=== PATIENT | male | born 1950 | race Caucasian/White ===

== ENCOUNTER 2018-03-17 11:14 | Outpatient (CLI) | payer OTHER ==
[2018-03-17] MEDS ORDERED: IOPAMIDOL-300 100 ML VIAL IVP ONE (13:07)
--- NOTE | 2018-03-17 14:31 | CT Report ---
CT BRAIN WITH AND WITHOUT CONTRAST: 03/17/2018 CLINICAL INDICATION: Esophageal cancer staging. TECHNIQUE: Axial CT images of the brain were obtained prior to and following 100 mL Isovue 300 intravenously. COMPARISON: No previous CT is available for comparison. FINDINGS: The ventricles and sulci are normal in size, shape and configuration. The basilar cisterns are patent. There is no evidence of hemorrhage, mass effect, or midline shift. The visualized orbital contents and paranasal sinuses are unremarkable. No abnormal enhancement is seen following contrast administration. IMPRESSION: NORMAL CT OF THE BRAIN WITH AND WITHOUT CONTRAST. NO EVIDENCE OF METASTATIC DISEASE. CT DOSE REDUCTION STATEMENT In accordance with CT protocol optimization, one or more of the following dose reduction techniques were utilized for this exam: automated exposure control, adjustment of mA and/or KV based on patient size, or use of iterative reconstructive technique. TD: 03/17/2018 14:30
--- NOTE | 2018-03-17 14:33 | CT Report ---
CT CHEST WITH CONTRAST: 03/17/2018 CLINICAL INDICATION: Esophageal cancer staging. TECHNIQUE: Axial CT images of the chest were obtained with 100 mL Isovue 300 intravenously. FINDINGS: The heart and great vessels demonstrate atherosclerotic calcification. No hilar or mediastinal lymphadenopathy is present. There is thickening of the distal esophagus, likely representing the primary lesion. There is a calcified granuloma in the right lower lobe. No suspicious noncalcified pulmonary nodule or mass lesion is present. No effusion or pneumothorax is seen. Osseous structures demonstrate degenerative changes. IMPRESSION: THICKENING OF THE DISTAL ESOPHAGUS, LIKELY REPRESENTING THE PRIMARY LESION. CALCIFIED GRANULOMA IN THE RIGHT LOWER LOBE. NO DEFINITE EVIDENCE OF METASTATIC DISEASE. CT DOSE REDUCTION STATEMENT In accordance with CT protocol optimization, one or more of the following dose reduction techniques were utilized for this exam: automated exposure control, adjustment of mA and/or KV based on patient size, or use of iterative reconstructive technique. TD: 03/17/2018 14:32
--- NOTE | 2018-03-17 14:35 | CT Report ---
CT ABDOMEN WITH CONTRAST: 03/17/2018 CLINICAL INDICATION: Esophageal cancer staging. TECHNIQUE: Axial CT images of the abdomen were obtained with 100 mL Isovue 300 intravenously as well as oral contrast. FINDINGS: The liver demonstrates diffuse decrease in attenuation, compatible with fatty infiltration. No focal mass is seen. The spleen, pancreas, kidneys and adrenal glands appear unremarkable. No bowel dilatation, free gas, or free fluid is present. The gallbladder is not dilated. No abdominal adenopathy is seen. Osseous structures demonstrate degenerative changes. IMPRESSION: FATTY INFILTRATION OF THE LIVER. NO EVIDENCE OF METASTATIC DISEASE. CT DOSE REDUCTION STATEMENT In accordance with CT protocol optimization, one or more of the following dose reduction techniques were utilized for this exam: automated exposure control, adjustment of mA and/or KV based on patient size, or use of iterative reconstructive technique. TD: 03/17/2018 14:33
== END 2018-03-17 11:15 | disposition home or self-care (01) ==
LOC: DI 11:14
PROVIDERS: ATTEND Emergency Medicine Emergency Medical Services
DX: C15.9 Malignant neoplasm of esophagus, unspecified (principal); K76.0 Fatty (change of) liver, not elsewhere classified
CPT/HCPCS: 70470; 71260; 74160; Q9967

== ENCOUNTER 2018-06-05 12:18 | Outpatient (CLI) | payer OTHER, MEDICARE | END 2018-06-05 12:19 | disposition critical access hospital (66) | LOC: EMS 12:18 | PROVIDERS: ATTEND Surgery | DX: R10.9 Unspecified abdominal pain (principal); R11.0 Nausea; R42 Dizziness and giddiness | CPT/HCPCS: A0425; A0427 ==

== ENCOUNTER 2018-06-05 12:34 | Emergency (ER) | payer OTHER, MEDICARE ==
[2018-06-05] MEDS ORDERED: SODIUM CHLORIDE 0.9% 1,000 ML IV ONE (12:41)
[2018-06-05] MEDS ORDERED: MORPHINE 10 MG/ML VIAL IVP STA ×2 (12:41→14:22)
--- NOTE | 2018-06-05 12:46 | ED Physician Documentation ---
PD HPI ABD PAIN - Stated complaint Stated Complaint: ABD PX - Chief complaint Chief Complaint: Abd Pain - History obtained from History obtained from: Patient - History of Present Illness Timing - onset: Today (68-year-old gentleman with esophageal cancer that was primary last year and recurred in the primary site which I guess is in the distal esophagus and he had an endoscopically placed esophageal stent yesterday. He was not very hungry last night or this morning but really was not having much pain. He had a small amount of emesis last night that was pink tinged, but he thinks that was from his Prilosec tablet which is pink. Today around noon He developed sudden onset bandlike upper abdominal pain wrapping to either side that is severe, 7 out of 10. He took a hydrocodone just prior to arrival and had Zofran en route from the paramedics.) Review of Systems Ten Systems: 10 systems reviewed and negative Constitutional: reports: Fatigue. denies: Fever, Chills Respiratory: denies: Dyspnea, Cough GI: reports: Abdominal Pain, Nausea, Vomiting. denies: Diarrhea, Hematemesis : denies: Dysuria, Unable to Void PD PAST MEDICAL HISTORY - Past Medical History Past Medical History: Yes Respiratory: COPD Endocrine/Autoimmune: Type 2 diabetes - Present Medications Home Medications: Ambulatory Orders Medication Instructions Recorded Confirmed Capecitabine 650 mg PO TID 06/05/18 06/05/18 Dexamethasone 4 mg PO DAILY 06/05/18 06/05/18 Hydrocodone/Acetaminophen 15 ml PO DAILY 06/05/18 06/05/18 [Hydrocodon-Acetamin 7.5-325/15] Lansoprazole [Prevacid] 30 mg PO DAILY 06/05/18 06/05/18 Loperamide HCl [Anti-Diarrheal] 2 mg PO DAILY 06/05/18 06/05/18 Ondansetron HCl [Zofran] 8 mg PO DAILY 06/05/18 06/05/18 - Allergies Allergies/Adverse Reactions: Allergies Allergy/AdvReac Type Severity Reaction Status Date / Time No Known Drug Allergies Allergy Verified 06/05/18 12:40 - Living Situation Living Situation: reports: With spouse/s.o. - Social History Does the pt have substance abuse?: No - Family History Family history: reports: Non contributory PD ED PE NORMAL - Vitals Vital signs reviewed: Yes - General General: Alert and oriented X 3, Other (Looks uncomfortable but not overtly distressed.) - HEENT HEENT: PERRL, EOMI - Neck Neck: Supple, no meningeal sign, No bony TTP - Cardiac Cardiac: RRR, No murmur - Respiratory Respiratory: Other (Bibasilar crackles) - Abdomen Abdomen: Other (Tender in the upper abdomen with normal bowel tones, soft with mild rebound tenderness, nonrigid in contrast to the EMS notes) - Back Back: No CVA TTP, No spinal TTP - Derm Derm: Normal color, Warm and dry - Extremities Extremities: No edema, No calf tenderness / cord - Neuro Neuro: Alert and oriented X 3, Normal speech Results - Vitals Vitals: Vital Signs - 24 hr 06/05/18 06/05/18 12:37 14:28 Temperature 36.7 C Heart Rate 98 95 Respiratory 20 20 Rate Blood Pressure 154/81 H 140/79 H O2 Saturation 97 97 Oxygen O2 Source Room air - EKG (time done) 1255 Rate: Rate (enter#) (94) Rhythm: NSR [place]: Normal Intervals: RBBB Ischemia: Non specific changes. No: ST elevation c/w ischemia Computer interpretation: Agree with computer - Labs Labs: Laboratory Tests 06/05/18 06/05/18 06/05/18 12:59 12:59 12:59 WBC 12.4 H RBC 4.23 L Hgb 13.2 L Hct 38.4 L MCV 90.8 MCH 31.1 H MCHC 34.3 RDW 13.7 Plt Count 167 MPV 5.8 L Neut # (Auto) 10.4 H Lymph # (Auto) 0.7 L [place] # (Auto) 1.2 H Eos # (Auto) 0.1 Baso # (Auto) 0.0 Absolute Nucleated RBC 0.00 Nucleated RBC % 0.0 PT 11.9 INR 1.1 Sodium 133 L Potassium 3.6 Chloride 97 L Carbon Dioxide 30 Anion Gap 6.0 BUN 22 H Creatinine 0.7 Estimated GFR (MDRD) 112 Glucose 184 H Lactic Acid Calcium 8.2 L Total Bilirubin 0.6 AST 29 ALT 40 Alkaline Phosphatase 56 Troponin I Total Protein 6.8 Albumin 3.7 Globulin 3.1 Albumin/Globulin Ratio 1.2 Lipase 16 L Blood Type Antibody Screen 06/05/18 06/05/18 06/05/18 12:59 12:59 12:59 WBC RBC Hgb Hct MCV MCH MCHC RDW Plt Count MPV Neut # (Auto) Lymph # (Auto) [place] # (Auto) Eos # (Auto) Baso # (Auto) Absolute Nucleated RBC Nucleated RBC % PT INR Sodium Potassium Chloride Carbon Dioxide Anion Gap BUN Creatinine Estimated GFR (MDRD) Glucose Lactic Acid 1.4 Calcium Total Bilirubin AST ALT Alkaline Phosphatase Troponin I < 0.04 Total Protein Albumin Globulin Albumin/Globulin Ratio Lipase Blood Type O NEGATIVE Antibody Screen NEGATIVE - Rads (name of study) Ct Chest/abd/pelvis with IV contrast Radiology: EMP read contemporaneously (Esophageal stent from the distal esophagus into the proximal stomach with a tiny right pleural effusion and a right lower lobe calcified granuloma change prior from prior exam.) PD MEDICAL DECISION MAKING - ED course Complexity details: reviewed old records (He has the operative report from yesterday with him, the surgeon was Grabiel Guerin MD. He had a circumferential ulcerated firm fungating mass in the distal esophagus, they were unable to pass one T through stricture. He was dilated with a 12 mm CRE, then placed a 450 cm stiff Jag through 12-15 mm biliary stone balloon. Wire placed into the stomach and confirmed with contrast with the balloon inflated. Placed clip BSC I at top of malignant stricture. Under fluoroscopy, 4.5 seconds, introduced BSC I 23 mm 105 mm CP wall flex over wire. Under direct visualization and with fluoroscopy the stent was deployed and copious gastric secretions reflux through the stent and suctioned free with no blood loss and no immediate complications.) ED course: 68-year-old gentleman with sudden upper abdominal pain a day after getting an esophageal stent. After the CTs, the case was initially discussed with my on- call surgeon, Dr. Hussain Ugalde who felt that this should be discussed with his GI and after that I spoke with his GI, Dr. Guerin at the [facility] who after we reviewed the CTs felt that potentially should have the stent pulled back and repositioned and requested that [facility], he will be on- call this weekend and already knows about the patient. He was accepted to the [facility] ER by Dr. Pineda at 3:40 PM, cobras were completed. Patient consented to transfer. - Sepsis Event Vital Signs: Vital Signs - 24 hr 06/05/18 06/05/18 12:37 14:28 Temperature 36.7 C Heart Rate 98 95 Respiratory 20 20 Rate Blood Pressure 154/81 H 140/79 H O2 Saturation 97 97 Oxygen O2 Source Room air Departure - Departure Disposition: 02 Transfer Acute Care Hosp Clinical Impression: Esophageal cancer Qualifiers: Malignant neoplasm of esophagus location: lower third Qualified Code(s): C15.5 - Malignant neoplasm of lower third of esophagus Migrated esophageal stent Qualifiers: Encounter type: initial encounter Qualified Code(s): T85.528A - Displacement of other gastrointestinal prosthetic devices, implants and grafts, initial encounter Condition: Stable
--- NOTE | 2018-06-05 13:02 | XRAY Report ---
Procedure Date: 06/05/2018 Accession Number: [id number] / [id number] Procedure: XR - Chest 1 View X-Ray CPT Code: 03915 FULL RESULT: EXAM: CHEST RADIOGRAPHY EXAM DATE: 06/05/2018 12:50 PM. CLINICAL HISTORY: Upper abd pain 1 day s/p esophogeal stent. COMPARISON: None. TECHNIQUE: 1 view. FINDINGS: Lungs/Pleura: No focal opacities evident. No pleural effusion. No pneumothorax. Mediastinum: Within exam limitations, the cardiomediastinal contour is normal. Other: Right-sided port position with its tip in the lower SVC. IMPRESSION: No focal consolidation. No esophageal stent identified. RADIA
[2018-06-05 13:07] LABS: EOSINOPHILS # (AUTO) 0.1 10^3/uL (0.0-0.7); EOSINOPHILS % (AUTO) 0.6 %; HGB - HEMOGLOBIN 13.2 g/dL (14.0-18.0); LYMPHOCYTES # (AUTO) 0.7 10^3/uL (1.5-3.5); LYMPHOCYTES % (AUTO) 5.9 %; MEAN CORPUSCULAR HEMOGLOBIN 31.1 pg (27.0-31.0); MEAN CORPUSCULAR HGB CONC 34.3 g/dL (32.0-36.0); MEAN CORPUSCULAR VOLUME 90.8 fL (80.0-94.0); MEAN PLATELET VOLUME 5.8 fL (7.4-11.4); MONOCYTES # (AUTO) 1.2 10^3/uL (0.0-1.0); MONOCYTES % (AUTO) 9.9 %; NEUTROPHILS # (AUTO) 10.4 10^3/uL (1.5-6.6); NEUTROPHILS % (AUTO) 83.6 %; PLT - PLATELET COUNT 167 10^3/uL (130-450); RED BLOOD COUNT 4.23 10^6/uL (4.70-6.10); RED CELL DISTRIBUTION WIDTH 13.7 % (12.0-15.0); WHITE BLOOD COUNT 12.4 x10^3/uL (4.8-10.8)
[2018-06-05 13:14] LABS: INR 1.1 (0.8-1.2); PT - PROTHROMBIN TIME 11.9 secs (9.9-12.6)
[2018-06-05 13:23] LABS: ALBUMIN 3.7 g/dL (3.2-5.5); ALBUMIN/GLOBULIN RATIO 1.2 (1.0-2.2); BILIRUBIN,TOTAL 0.6 mg/dL (0.2-1.0); CALCIUM 8.2 mg/dL (8.5-10.3); CREATININE 0.7 mg/dL (0.6-1.2); TOTAL PROTEIN 6.8 g/dL (6.7-8.2)
[2018-06-05] MEDS ORDERED: IOPAMIDOL-300 100 ML VIAL ONE (13:32)
[2018-06-05] MEDS ORDERED: IOPAMIDOL-300 100 ML VIAL IVP ONE (13:45)
[2018-06-05] MEDS ORDERED: METOCLOPRAMIDE 10 MG/2 ML VIAL IVP STA (13:52)
--- NOTE | 2018-06-05 14:11 | CT Report ---
Procedure Date: 06/05/2018 Accession Number: [id number] / [id number] Procedure: CT - Chest W/ CPT Code: FULL RESULT: EXAM: CT CHEST EXAM DATE: 06/05/2018 01:53 PM. CLINICAL HISTORY: IV only upper abd pain 1 day s/p esph stent for CA. COMPARISONS: Chest CT dated 06/05/2018.. TECHNIQUE: Routine helical CT imaging was performed through the chest. IV contrast: 100 mL Isovue 300. Reconstructions: Coronal and sagittal. In accordance with CT protocol optimization, one or more of the following dose reduction techniques were utilized for this exam: automated exposure control, adjustment of mA and/or KV based on patient size, or use of iterative reconstructive technique. FINDINGS: Lungs/Pleura: Peripherally calcified juxtapleural pulmonary nodule in the right lung base measuring 17 mm, previously 17 mm. No new focal consolidation. Tiny right-sided pleural effusion. No new pulmonary nodule or mass. Atelectatic changes in the lung bases. Mediastinum: There is an esophageal stent within the distal esophagus extending into the proximal stomach. No paraesophageal fluid, air or hemorrhage. The heart is normal in size. No axillary, mediastinal or hilar lymphadenopathy by CT size criteria. Bones: Unremarkable. Visualized Abdomen: Unremarkable. Other: None. IMPRESSION: 1. There is an esophageal stent extending from the distal esophagus into the proximal stomach. No paraesophageal fluid, air or hemorrhage identified. 2. Tiny right-sided pleural effusion. No focal consolidation. 3. Peripherally calcified granuloma in the medial aspect of the right lower lobe is unchanged from the prior examination and likely of no clinical significance. RADIA
--- NOTE | 2018-06-05 14:20 | CT Report ---
Procedure Date: 06/05/2018 Accession Number: [id number] / [id number] Procedure: CT - Abdomen/Pelvis W/ CPT Code: FULL RESULT: EXAM: CT ABDOMEN AND PELVIS EXAM DATE: 06/05/2018 01:53 PM. CLINICAL HISTORY: IV only upper abd pain 1 day s/p esph stent for CA. COMPARISONS: None. TECHNIQUE: Routine helical CT imaging was performed through the abdomen and pelvis. IV contrast: 100 mL Isovue 300. Enteric contrast: No. Reconstructions: Coronal and sagittal. In accordance with CT protocol optimization, one or more of the following dose reduction techniques were utilized for this exam: automated exposure control, adjustment of mA and/or KV based on patient size, or use of iterative reconstructive technique. FINDINGS: Lung Bases: Tiny right-sided pleural effusion. Atelectatic changes in the lung bases. There is an esophageal stent in the distal esophagus with extends into the proximal stomach. There is a paraesophageal lymph node measuring up to 11 mm in short axis (series 3, image 6). Liver: Normal. No masses. Gallbladder/Bile Ducts: Unremarkable. Spleen: Normal. Pancreas: Normal. Adrenal Glands: Normal. Kidneys: Normal. No masses or hydronephrosis. Peritoneal Cavity/Bowel: Normal. No free fluid, free air or adenopathy. No masses or acute inflammatory process. The appendix is well visualized and normal. Pelvic Organs: Normal. The bladder and visualized pelvic organs are within normal limits. Vasculature: No aneurysms or other significant abnormality. Bones: No significant abnormality. Other: None. IMPRESSION: 1. There is an esophageal stent extending from the distal esophagus and the proximal stomach. No paraesophageal fluid collection, air or hemorrhage. The stent is present deep into the inferior wall of the proximal stomach. This is best appreciated on the sagittal view (series 7, image 29). 2. No intraperitoneal air or fluid. RADIA
[2018-06-05] MEDS ORDERED: LIDOCAINE VISCOUS 2% 15 ML UDC MM STA (14:31)
[2018-06-05] MEDS ORDERED: MAG HYDROX/AL HYDROX/SIMETH 30 ML UDC PO STA (14:31)
[2018-06-05 17:23] VITALS: BP 131/73
== END 2018-06-05 17:55 | disposition short-term general hospital (02) ==
LOC: EDUNIT# → ED 12:34
DX: C15.5 Malignant neoplasm of lower third of esophagus (principal); T85.528A Displacement of other gastrointestinal prosthetic devices, implants and grafts, initial encounter; R10.9 Unspecified abdominal pain; R11.2 Nausea with vomiting, unspecified; E11.9 Type 2 diabetes mellitus without complications; I45.10 Unspecified right bundle-branch block
CPT/HCPCS: 36415; 71045; 71260; 74177; 80053; 83605; 83690; 84484; 85025; 85610; 86850; 86900; 86901; 93005; 96361; 96374; 96375; 96376; 99284; 99285; A9270; J2765; Q9967

== ENCOUNTER 2018-06-28 17:55 | Emergency (ER) | payer OTHER, MEDICARE ==
[2018-06-28 18:30] LABS: BASOPHILS % (AUTO) 0.4 %; EOSINOPHILS # (AUTO) 0.3 10^3/uL (0.0-0.7); EOSINOPHILS % (AUTO) 3.3 %; HGB - HEMOGLOBIN 12.5 g/dL (14.0-18.0); LYMPHOCYTES # (AUTO) 0.7 10^3/uL (1.5-3.5); LYMPHOCYTES % (AUTO) 6.4 %; MEAN CORPUSCULAR HEMOGLOBIN 31.7 pg (27.0-31.0); MEAN CORPUSCULAR HGB CONC 34.2 g/dL (32.0-36.0); MEAN CORPUSCULAR VOLUME 92.4 fL (80.0-94.0); MEAN PLATELET VOLUME 5.9 fL (7.4-11.4); MONOCYTES # (AUTO) 0.8 10^3/uL (0.0-1.0); MONOCYTES % (AUTO) 7.8 %; NEUTROPHILS # (AUTO) 8.3 10^3/uL (1.5-6.6); NEUTROPHILS % (AUTO) 82.1 %; PLT - PLATELET COUNT 152 10^3/uL (130-450); RED BLOOD COUNT 3.96 10^6/uL (4.70-6.10); RED CELL DISTRIBUTION WIDTH 15.1 % (12.0-15.0); WHITE BLOOD COUNT 10.2 x10^3/uL (4.8-10.8)
[2018-06-28 18:42] LABS: ALBUMIN 3.5 g/dL (3.2-5.5); ALBUMIN/GLOBULIN RATIO 1.1 (1.0-2.2); BILIRUBIN,TOTAL 0.6 mg/dL (0.2-1.0); CALCIUM 8.9 mg/dL (8.5-10.3); CREATININE 0.8 mg/dL (0.6-1.2); TOTAL PROTEIN 6.7 g/dL (6.7-8.2)
[2018-06-28] MEDS ORDERED: HYDROmorphone 2 MG/ML VIAL IVP STA (19:00)
--- NOTE | 2018-06-28 19:03 | ED Physician Documentation ---
PD HPI CHEST PAIN - Stated complaint Stated Complaint: CP - Chief complaint Chief Complaint: Cardiac - History obtained from History obtained from: Patient, Family - History of Present Illness Timing - onset: Today (This is a 68-year-old gentleman with esophageal cancer undergoing treatment with oral chemotherapy and he had as an esophageal stent in place. About a month ago I sent him back to the [facility] because his stent had migrated causing him pain. This afternoon, he was watching TV and developed sudden onset nonradiating central chest pain that sharp and severe and not relieved by oxycodone he took at home. He is not short of breath and denies pedal edema.) Review of Systems Constitutional: denies: Fever, Chills Cardiac: reports: Chest pain / pressure. denies: Palpitations Respiratory: denies: Dyspnea, Cough GI: denies: Abdominal Pain PD PAST MEDICAL HISTORY - Past Medical History Respiratory: COPD Endocrine/Autoimmune: Type 2 diabetes GI: GERD, Ulcers, Diverticulitis : Benign prostate hypertrophy, Retention - Past Surgical History Ortho: Other - Present Medications Home Medications: Ambulatory Orders Medication Instructions Recorded Confirmed Capecitabine 650 mg PO TID 06/05/18 06/05/18 Dexamethasone 4 mg PO DAILY 06/05/18 06/05/18 Hydrocodone/Acetaminophen 15 ml PO DAILY 06/05/18 06/05/18 [Hydrocodon-Acetamin 7.5-325/15] Lansoprazole [Prevacid] 30 mg PO DAILY 06/05/18 06/05/18 Loperamide HCl [Anti-Diarrheal] 2 mg PO DAILY 06/05/18 06/05/18 Ondansetron HCl [Zofran] 8 mg PO DAILY 06/05/18 06/05/18 HYDROmorphone [Dilaudid] 2 mg PO Q4H PRN #20 tablet 06/28/18 - Allergies Allergies/Adverse Reactions: Allergies Allergy/AdvReac Type Severity Reaction Status Date / Time No Known Drug Allergies Allergy Verified 06/28/18 18:12 - Social History Does the pt smoke?: Yes Smoking Status: Current every day smoker Does the pt drink ETOH?: No Does the pt have substance abuse?: No PD ED PE NORMAL - Vitals Vital signs reviewed: Yes - General General: Alert and oriented X 3 (He appears uncomfortable) - HEENT HEENT: PERRL, EOMI - Neck Neck: Supple, no meningeal sign, No bony TTP - Cardiac Cardiac: RRR, No murmur - Respiratory Respiratory: No respiratory distress, Other (Rhonchorous at the bases) - Abdomen Abdomen: Soft, Non tender - Back Back: No CVA TTP, No spinal TTP - Extremities Extremities: No edema, No calf tenderness / cord - Neuro Neuro: Alert and oriented X 3, Normal speech - Psych Psych: Normal mood, Normal affect Results - Vitals Vitals: Vital Signs - 24 hr 06/28/18 06/28/18 06/28/18 18:10 19:14 20:25 Temperature 36.8 C 37.5 C 37.2 C Heart Rate 107 H 109 H Respiratory 16 20 Rate Blood Pressure 123/73 129/69 O2 Saturation 99 94 06/28/18 22:09 Temperature Heart Rate 116 H Respiratory 18 Rate Blood Pressure 126/69 O2 Saturation 98 Oxygen O2 Source Nasal cannula Oxygen Flow Rate 2 - EKG (time done) 1805 Rate: Rate (enter#) (107) Rhythm: Sinus tachycardia [place]: Normal Intervals: RBBB, Other (LPFB) Compare to prior EKG: Unchanged from prior EKG (from 06/05/18) Computer interpretation: Agree with computer - Labs Labs: Laboratory Tests 06/28/18 06/28/18 06/28/18 18:26 18:26 18:26 WBC 10.2 RBC 3.96 L Hgb 12.5 L Hct 36.6 L MCV 92.4 MCH 31.7 H MCHC 34.2 RDW 15.1 H Plt Count 152 MPV 5.9 L Neut # (Auto) 8.3 H Lymph # (Auto) 0.7 L [place] # (Auto) 0.8 Eos # (Auto) 0.3 Baso # (Auto) 0.0 Absolute Nucleated RBC 0.00 Nucleated RBC % 0.0 Sodium 134 L Potassium 4.0 Chloride 97 L Carbon Dioxide 30 Anion Gap 7.0 BUN 15 Creatinine 0.8 Estimated GFR (MDRD) 96 Glucose 273 H Calcium 8.9 Total Bilirubin 0.6 AST 17 ALT 23 Alkaline Phosphatase 71 Troponin I < 0.04 Total Protein 6.7 Albumin 3.5 Globulin 3.2 Albumin/Globulin Ratio 1.1 Lipase 17 L - Rads (name of study) CT PA Radiology: EMP read contemporaneously (No PE, similar appearance of esophageal stent at all.) PD MEDICAL DECISION MAKING - ED course ED course: 68-year-old gentleman with known esophageal cancer, he is not an operative candidate presents with central chest pain that I presume is from the stents given his recent history. He was pain-free after milligram of Dilaudid here, and stayed that way for [address] shows no clear cause for the pain otherwise. - Sepsis Event Vital Signs: Vital Signs - 24 hr 06/28/18 06/28/18 06/28/18 18:10 19:14 20:25 Temperature 36.8 C 37.5 C 37.2 C Heart Rate 107 H 109 H Respiratory 16 20 Rate Blood Pressure 123/73 129/69 O2 Saturation 99 94 06/28/18 22:09 Temperature Heart Rate 116 H Respiratory 18 Rate Blood Pressure 126/69 O2 Saturation 98 Oxygen O2 Source Nasal cannula Oxygen Flow Rate 2 Departure - Departure Disposition: 01 Home, Self Care Clinical Impression: Esophageal cancer Qualifiers: Malignant neoplasm of esophagus location: unspecified location Qualified Code(s ): C15.9 - Malignant neoplasm of esophagus, unspecified Chest pain Qualifiers: Chest pain type: precordial pain Qualified Code(s): R07.2 - Precordial pain Condition: Good Record reviewed to determine appropriate education?: Yes Instructions: ED Chest Pain NonCardiac Prescriptions: HYDROmorphone [Dilaudid] 2 mg PO Q4H PRN #20 tablet PRN Reason: Pain Comments: Call your doctor to arrange a follow-up appointment, make the next available appointment. In the interim, return anytime if worse or if new symptoms develop.
[2018-06-28] MEDS ORDERED: IOPAMIDOL-300 100 ML VIAL ONE (20:40)
[2018-06-28] MEDS ORDERED: IOPAMIDOL-300 100 ML VIAL IVP ONE (21:27)
--- NOTE | 2018-06-28 22:29 | CT Report ---
Procedure Date: 06/28/2018 Accession Number: [id number] / [id number] Procedure: CT - Chest Angio (PE) CPT Code: FULL RESULT: EXAM: CT ANGIOGRAM CHEST EXAM DATE: 06/28/2018 09:23 PM. CLINICAL HISTORY: Chest pain. Esophageal cancer post-stent placement. COMPARISON: CT chest 06/05/2018. TECHNIQUE: Routine helical imaging was performed through the chest in the pulmonary arterial phase. IV Contrast: 55 ML ISOVUE 300. Reconstructions: Coronal 3-D MIP reconstructions.Sagittal and coronal. In accordance with CT protocol optimization, one or more of the following dose reduction techniques were utilized for this exam: automated exposure control, adjustment of mA and/or KV based on patient size, or use of iterative reconstructive technique. FINDINGS: Pulmonary Arteries: Diagnostic quality: Adequate through the segmental arteries. No pulmonary embolus is seen. Lungs/Pleura: Stable 17 x 15 mm calcified granuloma in the medial right lower lobe (5/72) and 3 mm nodule in the peripheral left lower lobe (5/105). No focal infiltrate, pleural effusion, or pneumothorax. Mediastinum: Heart size is normal. No pericardial effusion. Variant aortic arch anatomy, with common origin of the innominate and left common carotid arteries. Moderate atherosclerotic calcifications within aortic arch. No aortic aneurysm or dissection. A right-sided port catheter terminates near the cavoatrial junction, as before. A metallic stent extends from the distal esophagus into the stomach. Similar appearance of diffuse mid/distal esophageal and GE junction wall thickening with adjacent fat stranding. Interval slightly decreased size of right paraesophageal node now measuring 1.5 x 0.9 cm (4/107), previously 1.8 x 1.2 cm. Upper Abdomen: Unremarkable. Bones: No suspicious lytic or blastic osseous lesion. Other: None. IMPRESSION: 1. No pulmonary embolus. 2. Esophageal stent in place. Similar appearance of diffuse mid/distal esophageal and GE junction wall thickening, compatible with known malignancy. 3. Interval slightly decreased size of right paraesophageal node. RADIA
[2018-06-28 22:52] VITALS: BP 122/73
== END 2018-06-28 22:51 | disposition home or self-care (01) ==
LOC: ED 17:55
DX: C15.9 Malignant neoplasm of esophagus, unspecified (principal); R07.2 Precordial pain; Z97.8 Presence of other specified devices; I45.10 Unspecified right bundle-branch block; R00.0 Tachycardia, unspecified; Z79.899 Other long term (current) drug therapy; E11.9 Type 2 diabetes mellitus without complications; F17.200 Nicotine dependence, unspecified, uncomplicated
CPT/HCPCS: 71275; 80053; 83690; 84484; 85025; 93005; 96374; 96375; 99284; J1170; Q9967; 36415

== ENCOUNTER 2018-07-24 08:52 | Outpatient (CLI) | payer OTHER, MEDICARE | END 2018-07-24 08:53 | disposition critical access hospital (66) | LOC: EMS 08:52 | PROVIDERS: ATTEND Surgery | DX: R04.2 Hemoptysis (principal) | CPT/HCPCS: A0425; A0427 ==

== ENCOUNTER 2018-07-24 09:12 | Emergency (ER) | payer OTHER, MEDICARE ==
[2018-07-24] MEDS ORDERED: FAMOTIDINE 20 MG/50 ML 50 ML IV ONE (09:23)
[2018-07-24] MEDS ORDERED: HYDROmorphone 1 MG/ML CARPUJECT IVP STA ×2 (09:23→11:05)
[2018-07-24] MEDS ORDERED: ONDANSETRON 4 MG/2 ML VIAL IVP STA (09:23)
[2018-07-24 09:35] LABS: BASOPHILS # (AUTO) 0.1 10^3/uL (0.0-0.1); BASOPHILS % (AUTO) 0.8 %; LYMPHOCYTES # (AUTO) 0.4 10^3/uL (1.5-3.5); LYMPHOCYTES % (AUTO) 4.6 %; MEAN CORPUSCULAR HEMOGLOBIN 32.4 pg (27.0-31.0); MEAN CORPUSCULAR HGB CONC 34.9 g/dL (32.0-36.0); MEAN PLATELET VOLUME 6.3 fL (7.4-11.4); MONOCYTES # (AUTO) 0.5 10^3/uL (0.0-1.0); MONOCYTES % (AUTO) 5.9 %; NEUTROPHILS # (AUTO) 7.1 10^3/uL (1.5-6.6); NEUTROPHILS % (AUTO) 88.7 %; PLT - PLATELET COUNT 148 10^3/uL (130-450); RED BLOOD COUNT 3.69 10^6/uL (4.70-6.10); RED CELL DISTRIBUTION WIDTH 17.4 % (12.0-15.0); WHITE BLOOD COUNT 7.9 x10^3/uL (4.8-10.8)
[2018-07-24 09:51] LABS: INR 1.3 (0.8-1.2); PT - PROTHROMBIN TIME 14.6 secs (9.9-12.6)
[2018-07-24 09:59] LABS: ALBUMIN 3.3 g/dL (3.2-5.5); BILIRUBIN,TOTAL 0.5 mg/dL (0.2-1.0); CALCIUM 8.9 mg/dL (8.5-10.3); CREATININE 0.9 mg/dL (0.6-1.2); TOTAL PROTEIN 6.6 g/dL (6.7-8.2)
[2018-07-24] MEDS ORDERED: SODIUM CHLORIDE 0.9% 1,000 ML IV ONE (11:05)
--- NOTE | 2018-07-24 12:58 | ED Physician Documentation ---
PD HPI GI BLEED - Stated complaint Stated Complaint: GI BLEED - Chief complaint Chief Complaint: Abd Pain - History obtained from History obtained from: Patient - History of Present Illness Timing - onset: Today (3 AM) Associated symptoms: Vomiting, Coffee ground emesis Contributing factors: Other (Esophageal cancer, with esophageal stent placement. ) Recently seen: Clinic (he was seen in clinic yesterday for chemotherapy.) - Additional information Additional information: The patient is a 68-year-old male with history of esophageal cancer, with esophageal stent, and on chemotherapy, who presents with vomiting of dark colored emesis this morning. Initial onset was about 6 hours prior to arrival. He reports associated epigastric discomfort. He denies fever, lightheadedness , chest pain or shortness of breath, or change in the color of his stools. He was initially diagnosed with esophageal cancer in 2016. He was more recently diagnosed with recurrent cancer and is currently undergoing chemotherapy, with his most recent chemotherapy treatment occurring yesterday. He had a CT scan of the abdomen yesterday, and reports there was concern about the amount of stool in his colon. He has been using 4 to 8 OxyContin daily. He was started on a more rigorous bowel regimen yesterday, including MiraLAX. Review of Systems Constitutional: denies: Fever Nose: denies: Congestion Throat: denies: Sore throat Cardiac: denies: Chest pain / pressure Respiratory: denies: Dyspnea, Cough GI: reports: Abdominal Pain (epigastric), Vomiting, Constipation : denies: Dysuria Skin: denies: Rash Musculoskeletal: denies: Back pain, Extremity swelling Neurologic: denies: Focal weakness, Numbness, Headache PD PAST MEDICAL HISTORY - Past Medical History Past Medical History: Yes Respiratory: COPD Endocrine/Autoimmune: Type 2 diabetes GI: GERD, Ulcers, Diverticulitis, Other (Esophageal cancer) : Benign prostate hypertrophy, Retention Other Past Medical History: Espophageal cancer w/ placed stent. - Past Surgical History Past Surgical History: Yes Ortho: Other - Present Medications Home Medications: Ambulatory Orders Medication Instructions Recorded Confirmed Capecitabine 650 mg PO TID 06/05/18 06/05/18 Dexamethasone 4 mg PO DAILY 06/05/18 06/05/18 Hydrocodone/Acetaminophen 15 ml PO DAILY 06/05/18 06/05/18 [Hydrocodon-Acetamin 7.5-325/15] Lansoprazole [Prevacid] 30 mg PO DAILY 06/05/18 06/05/18 Loperamide HCl [Anti-Diarrheal] 2 mg PO DAILY 06/05/18 06/05/18 Ondansetron HCl [Zofran] 8 mg PO DAILY 06/05/18 06/05/18 HYDROmorphone [Dilaudid] 2 mg PO Q4H PRN #20 tablet 06/28/18 Promethazine [Phenergan] 25 - 50 mg PO Q6H PRN #10 tab 07/24/18 - Allergies Allergies/Adverse Reactions: Allergies Allergy/AdvReac Type Severity Reaction Status Date / Time No Known Drug Allergies Allergy Verified 06/28/18 18:12 - Living Situation Living Situation: reports: With spouse/s.o. - Social History Does the pt smoke?: Yes Smoking Status: Current every day smoker Does the pt drink ETOH?: No Does the pt have substance abuse?: No PD ED PE NORMAL - Vitals Vital signs reviewed: Yes (mildly tachycardic) - General General: Alert and oriented X 3, Well developed/nourished - HEENT HEENT: Atraumatic, Moist mucous membranes - Neck Neck: No adenopathy, No JVD - Cardiac Cardiac: No murmur, Other (mildly tachycardic, in the 100 range.) - Respiratory Respiratory: No respiratory distress, Clear bilaterally - Abdomen Abdomen: Soft, Other (Rotund abdomen, with tenderness to palpation in the epigastric region. No rebound tenderness or guarding.) - Back Back: No CVA TTP - Derm Derm: No rash - Extremities Extremities: No edema, No calf tenderness / cord - Neuro Neuro: Alert and oriented X 3, No motor deficit, Normal speech Results - Vitals Vitals: Vital Signs - 24 hr 07/24/18 07/24/18 07/24/18 09:16 09:42 13:06 Temperature 35.8 C L Heart Rate 117 H 108 H 98 Respiratory 16 16 16 Rate Blood Pressure 126/69 122/71 121/59 L O2 Saturation 98 98 99 Oxygen O2 Source Room air - Labs Labs: Laboratory Tests 07/24/18 07/24/18 07/24/18 09:27 09:27 09:27 WBC 7.9 RBC 3.69 L Hgb 12.0 L Hct 34.4 L MCV 93.0 MCH 32.4 H MCHC 34.9 RDW 17.4 H Plt Count 148 MPV 6.3 L Neut # (Auto) 7.1 H Lymph # (Auto) 0.4 L [place] # (Auto) 0.5 Eos # (Auto) 0.0 Baso # (Auto) 0.1 Absolute Nucleated RBC 0.00 Nucleated RBC % 0.0 PT 14.6 H INR 1.3 H APTT 28.2 Sodium 136 Potassium 4.7 Chloride 100 L Carbon Dioxide 26 Anion Gap 10.0 BUN 29 H Creatinine 0.9 Estimated GFR (MDRD) 84 L Glucose 211 H Calcium 8.9 Total Bilirubin 0.5 AST 29 ALT 23 Alkaline Phosphatase 57 Total Protein 6.6 L Albumin 3.3 Globulin 3.3 Albumin/Globulin Ratio 1.0 Lipase 20 L PD MEDICAL DECISION MAKING - ED course Complexity details: reviewed old records, reviewed results, re-evaluated patient , considered differential, d/w patient, d/w family, d/w PMD ED course: The patient's presentation is significant for vomiting with coffee-ground emesis. There is no bright red blood to indicate current or ongoing GI bleeding. He did have endoscopy performed yesterday in the clinic, and there was no apparent evidence of bleeding from the tumor site at that time. His hemoglobin and hematocrit today are stable at 12.0 and 34.4. In discussion with his population health coach, I learned that his hemaglobin yesterday was 11.5. During his course in the emergency department here today he had one episode of very small emesis that had few coffee-ground appearing particles. This occurred early in the course of his emergency department visit, and he had no recurrent episodes. Treatment in the emergency department included administration of normal saline 1 L IV, ondansetron 4 mg IV, famotidine 20 mg IV, and Dilaudid 1 mg IV 2. By the time of discharge he appeared stable, with resolution of his nausea. I discussed his condition with his population health coach who plans to see him in follow-up early next week. I discussed with the patient and his potentially worrisome signs or symptoms that should prompt reevaluation in the emergency department. He is being discharged with prescription for Phenergan. - Sepsis Event Vital Signs: Vital Signs - 24 hr 07/24/18 07/24/18 07/24/18 09:16 09:42 13:06 Temperature 35.8 C L Heart Rate 117 H 108 H 98 Respiratory 16 16 16 Rate Blood Pressure 126/69 122/71 121/59 L O2 Saturation 98 98 99 Oxygen O2 Source Room air Departure - Departure Disposition: 01 Home, Self Care Clinical Impression: History of esophageal cancer, Constipation by delayed colonic transit Vomiting Qualifiers: Vomiting type: hematemesis Nausea presence: with nausea Qualified Code(s): K92.0 - Hematemesis Condition: Stable Instructions: ED Bleed UGI Stable Follow-Up: Mayank Rocha MD [Primary Care Provider] - Prescriptions: Promethazine [Phenergan] 25 - 50 mg PO Q6H PRN #10 tab PRN Reason: Nausea / Vomiting Comments: Use Phenergan as prescribed if needed for nausea. Drink plenty of fluids. Follow up with your primary physician within 1 week. Call to schedule an appointment. Return to the emergency department if you develop increasing bloody emesis, increasing abdominal pain, lightheadedness, or otherwise worsening symptoms. Discharge Date/Time: 07/24/18 13:08
[2018-07-24 13:07] VITALS: BP 121/59
== END 2018-07-24 13:08 | disposition home or self-care (01) ==
LOC: EDUNIT# → SUPCPDRO 09:12 → ED 09:12
DX: K92.0 Hematemesis (principal); C15.9 Malignant neoplasm of esophagus, unspecified; K59.00 Constipation, unspecified; R11.0 Nausea; E11.9 Type 2 diabetes mellitus without complications; F17.200 Nicotine dependence, unspecified, uncomplicated; Z79.899 Other long term (current) drug therapy
CPT/HCPCS: 36415; 80053; 83690; 85025; 85610; 85730; 96361; 96365; 96375; 96376; 99283; 99284; J1170

== ENCOUNTER 2018-10-18 17:44 | Outpatient (CLI) | payer OTHER | END 2018-10-18 17:45 | disposition critical access hospital (66) | LOC: EMS 17:44 | PROVIDERS: ATTEND Surgery | DX: R11.0 Nausea (principal); R53.1 Weakness; R61 Generalized hyperhidrosis; R09.89 Other specified symptoms and signs involving the circulatory and respiratory systems | CPT/HCPCS: A0425; A0427 ==

== ENCOUNTER 2018-10-18 18:05 | Emergency (ER) | payer MEDICARE, OTHER ==
[2018-10-18] MEDS ORDERED: PANTOPRAZOLE 40 MG VIAL IVP STA (18:19)
--- NOTE | 2018-10-18 18:21 | ED Physician Documentation ---
History of Present Illness - Stated complaint Stated Complaint: GI BLEED - Chief complaint Chief Complaint: General - History obtained from History obtained from: Patient - History of Present Illness Timing: Other (This is a 68-year-old gentleman with esophageal cancer. He is undergoing palliative chemotherapy and has an esophageal stent in place that is about 4 months old. 2 days ago he was vomiting blood. He was not too worried by it. Today he felt weak and dizzy and could not walk. He feels better now that he has had about 1500 mL of saline in route. He denies ongoing bleeding or dark or tarry stools.) Review of Systems Ten Systems: 10 systems reviewed and negative Constitutional: reports: Fatigue, Sweats. denies: Fever, Chills Cardiac: denies: Chest pain / pressure, Palpitations Respiratory: denies: Dyspnea, Cough GI: denies: Abdominal Pain, Nausea, Vomiting, Constipation, Diarrhea PD PAST MEDICAL HISTORY - Past Medical History Past Medical History: Yes Respiratory: COPD Endocrine/Autoimmune: Type 2 diabetes GI: GERD, Ulcers, Diverticulitis, Other (Esophageal cancer) : Benign prostate hypertrophy, Retention - Past Surgical History Past Surgical History: Yes Ortho: Other - Present Medications Home Medications: Ambulatory Orders Medication Instructions Recorded Confirmed Hydrocodone/Acetaminophen 15 ml PO DAILY 06/05/18 06/05/18 [Hydrocodon-Acetamin 7.5-325/15] Lansoprazole [Prevacid] 30 mg PO DAILY 06/05/18 06/05/18 Loperamide HCl [Anti-Diarrheal] 2 mg PO DAILY 06/05/18 06/05/18 Ondansetron HCl [Zofran] 8 mg PO DAILY 06/05/18 06/05/18 RX: Capecitabine 650 mg PO TID 06/05/18 06/05/18 RX: Dexamethasone 4 mg PO DAILY 06/05/18 06/05/18 HYDROmorphone [Dilaudid] 2 mg PO Q4H PRN #20 tablet 06/28/18 Promethazine [Phenergan] 25 - 50 mg PO Q6H PRN #10 tab 07/24/18 - Allergies Allergies/Adverse Reactions: Allergies Allergy/AdvReac Type Severity Reaction Status Date / Time No Known Drug Allergies Allergy Verified 10/18/18 18:20 - Social History Does the pt smoke?: Yes Smoking Status: Current every day smoker Does the pt drink ETOH?: No Does the pt have substance abuse?: No PD ED PE NORMAL - Vitals Vital signs reviewed: Yes - General General: Alert and oriented X 3, No acute distress - HEENT HEENT: PERRL, EOMI - Neck Neck: Supple, no meningeal sign, No bony TTP - Cardiac Cardiac: RRR, No murmur - Respiratory Respiratory: No respiratory distress, Clear bilaterally - Abdomen Abdomen: Soft, Non tender, Other (Somewhat distended and firm abdomen but no tenderness) - Male Male : Other (Brown trace guaiac positive stool, not melanotic) - Back Back: No CVA TTP, No spinal TTP - Neuro Neuro: Alert and oriented X 3, Normal speech - Psych Psych: Normal mood, Normal affect Results - Vitals Vitals: Vital Signs - 24 hr 10/18/18 10/18/18 10/18/18 18:13 20:03 20:42 Temperature 36.5 C 36.7 C 37 C Heart Rate 121 H 121 H 118 H Respiratory 16 22 16 Rate Blood Pressure 105/57 L 117/70 96/57 L O2 Saturation 99 10/18/18 10/18/18 20:46 22:08 Temperature 36.8 C Heart Rate 118 H 118 H Respiratory 16 19 Rate Blood Pressure 104/67 114/81 H O2 Saturation 95 Oxygen O2 Source Room air - EKG (time done) 1821 Rate: Rate (enter#) (120) Rhythm: Sinus tachycardia [place]: Normal Intervals: RBBB, LBBB (LPFB) QRS: Normal Ischemia: Normal ST segments Computer interpretation: Agree with computer - Labs Labs: Laboratory Tests 10/18/18 10/18/18 10/18/18 18:25 18:25 18:25 WBC 10.6 RBC 2.66 L Hgb 8.8 L Hct 26.1 L MCV 98.2 H MCH 33.0 H MCHC 33.6 RDW 18.7 H Plt Count 119 L MPV 6.7 L Neut # (Auto) 9.0 H Lymph # (Auto) 0.5 L [place] # (Auto) 1.0 Eos # (Auto) 0.1 Baso # (Auto) 0.1 Absolute Nucleated RBC 0.00 Nucleated RBC % 0.0 PT 15.8 H INR 1.4 H APTT 21.2 L Sodium 137 Potassium 4.0 Chloride 103 Carbon Dioxide 26 Anion Gap 8.0 BUN 9 Creatinine 1.0 Estimated GFR (MDRD) 74 L Glucose 237 H Lactic Acid Calcium 8.0 L Total Bilirubin 0.3 AST 22 ALT 14 Alkaline Phosphatase 58 Troponin I Total Protein 5.3 L Albumin 3.0 L Globulin 2.3 Albumin/Globulin Ratio 1.3 Lipase 15 L Blood Type Antibody Screen Crossmatch IS Only 10/18/18 10/18/18 10/18/18 18:25 18:25 18:25 WBC RBC Hgb Hct MCV MCH MCHC RDW Plt Count MPV Neut # (Auto) Lymph # (Auto) [place] # (Auto) Eos # (Auto) Baso # (Auto) Absolute Nucleated RBC Nucleated RBC % PT INR APTT Sodium Potassium Chloride Carbon Dioxide Anion Gap BUN Creatinine Estimated GFR (MDRD) Glucose Lactic Acid 3.1 H* Calcium Total Bilirubin AST ALT Alkaline Phosphatase Troponin I < 0.04 Total Protein Albumin Globulin Albumin/Globulin Ratio Lipase Blood Type O NEGATIVE Antibody Screen NEGATIVE Crossmatch IS Only See Detail PD MEDICAL DECISION MAKING - ED course ED course: 68-year-old gentleman with history of esophageal cancer, stent in place presents with what seems like resolved upper GI bleeding but hemodynamic instability, his blood pressure on scene was 60/30 and has been persistently tachycardic. He received about 1.5 L of crystalloid in route with improvement in his symptoms. He is only trace guaiac positive but he is down about 3-1/2 units since his last admission here. [facility] executive, they do not have gastroenterology data security consultant and regardless they do not have any beds available. Was discussed at length with the patient. He had significant misgivings about being transferred even to being admitted at all. He is starting to consider ho spice. He was transfused 1 unit given the apparent active bleeding and continued tachycardia. He did not want to be admitted or transferred. He understands he may tonight but is continuing to consider hospice. We had prolonged conversations about this and he had quite a bit of time to think while he was transfused. He continued to express interest in going home. He says if he is going to , he wants to at home and refuses admit or transfer. Departure - Departure Disposition: Home, Self Care Clinical Impression: Esophageal cancer, Upper GI bleed Condition: Stable Record reviewed to determine appropriate education?: Yes Instructions: ED Bleed UGI Stable Comments: Talk with your oncologist tomorrow about hospice. Return anytime if you would like stabilization or inpatient care as discussed.
[2018-10-18 18:40] LABS: BASOPHILS # (AUTO) 0.1 10^3/uL (0.0-0.1); BASOPHILS % (AUTO) 0.6 %; EOSINOPHILS # (AUTO) 0.1 10^3/uL (0.0-0.7); HGB - HEMOGLOBIN 8.8 g/dL (14.0-18.0); LYMPHOCYTES # (AUTO) 0.5 10^3/uL (1.5-3.5); LYMPHOCYTES % (AUTO) 4.3 %; MEAN CORPUSCULAR HGB CONC 33.6 g/dL (32.0-36.0); MEAN CORPUSCULAR VOLUME 98.2 fL (80.0-94.0); MEAN PLATELET VOLUME 6.7 fL (7.4-11.4); MONOCYTES % (AUTO) 9.2 %; NEUTROPHILS % (AUTO) 84.9 %; PLT - PLATELET COUNT 119 10^3/uL (130-450); RED BLOOD COUNT 2.66 10^6/uL (4.70-6.10); RED CELL DISTRIBUTION WIDTH 18.7 % (12.0-15.0); WHITE BLOOD COUNT 10.6 x10^3/uL (4.8-10.8)
[2018-10-18 19:02] LABS: INR 1.4 (0.8-1.2); PT - PROTHROMBIN TIME 15.8 secs (9.9-12.6)
[2018-10-18 19:03] LABS: ALBUMIN/GLOBULIN RATIO 1.3 (1.0-2.2); BILIRUBIN,TOTAL 0.3 mg/dL (0.2-1.0); TOTAL PROTEIN 5.3 g/dL (6.7-8.2)
[2018-10-18 22:12] VITALS: BP 114/81
== END 2018-10-18 22:25 | disposition home or self-care (01) ==
LOC: EDUNIT# → ED 18:05
DX: C15.9 Malignant neoplasm of esophagus, unspecified (principal); K92.2 Gastrointestinal hemorrhage, unspecified; E11.9 Type 2 diabetes mellitus without complications; J44.9 Chronic obstructive pulmonary disease, unspecified; I95.9 Hypotension, unspecified; R00.0 Tachycardia, unspecified; F17.200 Nicotine dependence, unspecified, uncomplicated; Z79.899 Other long term (current) drug therapy; Z96.89 Presence of other specified functional implants
CPT/HCPCS: 36415; 36430; 80053; 83605; 83690; 84484; 85025; 85610; 85730; 86850; 86900; 86901; 86920; 93005; 96374; 99283; 99284; P9016

== ENCOUNTER 2018-10-19 19:32 | Emergency (ER) | payer OTHER ==
[2018-10-19] MEDS ORDERED: SODIUM CHLORIDE 0.9% 1,000 ML IV STA (19:48)
--- NOTE | 2018-10-19 20:18 | ED Physician Documentation ---
PD HPI GI BLEED - Stated complaint Stated Complaint: VOMITING BLOOD - Chief complaint Chief Complaint: Abd Pain - History obtained from History obtained from: Patient - History of Present Illness Timing - onset: Yesterday Timing - details: Abrupt onset, Intermittant Pain level now: 5 Associated symptoms: Vomiting, Coffee ground emesis, Abdominal pain. No: BRBPR, Maroon stool, Black/tarry stool, Fever Improved by: Other (no ameliorating factors) Worsened by: Other (no exacerbating factors) Similar symptoms before: Diagnosis (esophageal CA) Recently seen: Emergency Dept - Additional information Additional information: T+R yesterday from this ED for coffee-ground emesis (which had started yesterday), found to be anemic and was transfused 1 unit PRBC. ED MD note reflects that patient did not want further treatment at that time, including admission/transfer. He returns tonight because of more episodes of coffee-ground emesis. He says he had one more episode yesterday after discharge home and again tonight. Review of Systems Constitutional: denies: Fever, Chills, Sweats Cardiac: reports: Reviewed and negative Respiratory: reports: Reviewed and negative GI: reports: Abdominal Pain (epigastric (he indicates this is not new for him)), Nausea. denies: Vomiting, Constipation, Diarrhea : denies: Dysuria, Frequency PD PAST MEDICAL HISTORY - Past Medical History Respiratory: COPD Endocrine/Autoimmune: Type 2 diabetes GI: GERD, Ulcers, Diverticulitis, Other : Benign prostate hypertrophy, Retention - Past Surgical History Past Surgical History: Yes Ortho: Other - Present Medications Home Medications: Ambulatory Orders Medication Instructions Recorded Confirmed Capecitabine 650 mg PO TID 06/05/18 06/05/18 Hydrocodone/Acetaminophen 15 ml PO DAILY 06/05/18 06/05/18 [Hydrocodon-Acetamin 7.5-325/15] Lansoprazole [Prevacid] 30 mg PO DAILY 06/05/18 06/05/18 Loperamide HCl [Anti-Diarrheal] 2 mg PO DAILY PRN 06/05/18 06/05/18 Ondansetron HCl [Zofran] 8 mg PO DAILY 06/05/18 06/05/18 HYDROmorphone [Dilaudid] 2 mg PO Q4H PRN #20 tablet 06/28/18 Promethazine [Phenergan] 25 - 50 mg PO Q6H PRN #10 tab 07/24/18 - Allergies Allergies/Adverse Reactions: Allergies Allergy/AdvReac Type Severity Reaction Status Date / Time No Known Drug Allergies Allergy Verified 10/19/18 19:55 - Social History Does the pt smoke?: Yes Smoking Status: Current every day smoker Does the pt drink ETOH?: No Does the pt have substance abuse?: No - POLST Patient has POLST: No PD ED PE NORMAL - Vitals Vital signs reviewed: Yes - General General: Alert and oriented X 3, No acute distress, Well developed/nourished - HEENT HEENT: Moist mucous membranes - Neck Neck: Supple, no meningeal sign - Cardiac Cardiac: No murmur - Respiratory Respiratory: No respiratory distress, Clear bilaterally - Abdomen Abdomen: Soft, Non distended, Other (tender to palpation in epigastrium and p eriumbilicus without rebound) - Back Back: No CVA TTP - Derm Derm: Normal color, Warm and dry - Neuro Neuro: Alert and oriented X 3 PD ED PE EXPANDED - Cardiac Cardiac: Tachy, Regular Rhythm Results - Vitals Vitals: Vital Signs - 24 hr 10/19/18 10/19/18 10/19/18 19:37 21:03 23:25 Temperature 36.9 C Heart Rate 118 H 118 H 120 H Respiratory 16 16 16 Rate Blood Pressure 96/59 L 113/58 L 111/71 O2 Saturation 98 93 94 10/19/18 10/19/18 10/19/18 23:37 23:49 23:58 Temperature 37 C 37.2 C 37.2 C Heart Rate 122 H 123 H 122 H Respiratory 18 16 18 Rate Blood Pressure 95/66 112/63 111/69 O2 Saturation 10/20/18 10/20/18 10/20/18 00:31 01:02 01:33 Temperature 37.2 C 37.1 C 37 C Heart Rate 121 H 119 H 118 H Respiratory 18 20 18 Rate Blood Pressure 119/71 111/67 124/65 O2 Saturation 10/20/18 10/20/18 02:05 03:05 Temperature 37 C 36.6 C Heart Rate 122 H 122 H Respiratory 20 18 Rate Blood Pressure 126/65 126/65 O2 Saturation 93 Oxygen O2 Source Room air - Labs Labs: Laboratory Tests 10/19/18 10/19/18 10/19/18 20:13 20:13 20:13 WBC 8.9 RBC 2.56 L Hgb 8.2 L Hct 24.4 L MCV 95.4 H MCH 32.1 H MCHC 33.6 RDW 19.0 H Plt Count 112 L MPV 6.5 L Neut # (Auto) 7.4 H Lymph # (Auto) 0.5 L [place] # (Auto) 0.8 Eos # (Auto) 0.1 Baso # (Auto) 0.0 Absolute Nucleated RBC 0.00 Nucleated RBC % 0.0 PT 15.6 H INR 1.4 H Sodium 137 Potassium 3.8 Chloride 100 L Carbon Dioxide 27 Anion Gap 10.0 BUN 34 H Creatinine 0.9 Estimated GFR (MDRD) 84 L Glucose 231 H Calcium 8.5 Total Bilirubin 0.6 AST 18 ALT 15 Alkaline Phosphatase 55 Total Protein 6.1 L Albumin 3.0 L Globulin 3.1 Albumin/Globulin Ratio 1.0 Lipase 14 L Urine Color Urine Clarity Urine pH Ur Specific [place] Urine Protein Urine Glucose (UA) Urine Ketones Urine Occult Blood Urine Nitrite Urine Bilirubin Urine Urobilinogen Ur Leukocyte Esterase Ur Microscopic Review Urine Culture Comments Blood Type Antibody Screen Crossmatch IS Only 10/19/18 10/20/18 20:55 00:30 WBC RBC Hgb Hct MCV MCH MCHC RDW Plt Count MPV Neut # (Auto) Lymph # (Auto) [place] # (Auto) Eos # (Auto) Baso # (Auto) Absolute Nucleated RBC Nucleated RBC % PT INR Sodium Potassium Chloride Carbon Dioxide Anion Gap BUN Creatinine Estimated GFR (MDRD) Glucose Calcium Total Bilirubin AST ALT Alkaline Phosphatase Total Protein Albumin Globulin Albumin/Globulin Ratio Lipase Urine Color YELLOW Urine Clarity CLEAR Urine pH 6.5 Ur Specific [place] 1.010 Urine Protein NEGATIVE Urine Glucose (UA) 100 H Urine Ketones NEGATIVE Urine Occult Blood NEGATIVE Urine Nitrite NEGATIVE Urine Bilirubin NEGATIVE Urine Urobilinogen 0.2 (NORMAL) Ur Leukocyte Esterase NEGATIVE Ur Microscopic Review NOT INDICATED Urine Culture Comments NOT INDICATED Blood Type O NEGATIVE Antibody Screen NEGATIVE Crossmatch IS Only See Detail PD MEDICAL DECISION MAKING - ED course Complexity details: reviewed results, re-evaluated patient, considered differential, d/w patient, d/w family ED course: I had extensive d/w patient and family (spouse and daughter, present at bedside) regarding options. Patient says his doctors have told him his condition is terminal. Patient tells me "if I'm going to , I want to at home". His h/h is lower than before his PRBC transfusion yesterday. I explained that his bleeding might worsen, and this could become life-threatening (that he might from the bleeding). I offered to get him admitted, and he expresses uncertainty as to whether he wants to be admitted. He eventually says he would be agreeable to admission but does not want to be transferred to [place]. [employer]ODUCE [employer]CH[employer] tried to con tact [facility], but got an automated message indicating no one would be available to until weekday, daytime hours. I then d/w Dr. Hi ([facility] hospitalist) who expresses concern regarding the complexity of his case (gastric stent); additionally, should the patient's condition worsen, if he does not want aggressive management, then there is no benefit for the admission. I discussed this with patient and family, and patient agrees to having a unit of PRBC transfused but then wants to be discharged home. He says he has scheduled outpatient blood work tomorrow; I instructed him to contact his doctor in the morning to discuss the results of that test and discuss further recommendations and options for treatment. He understands that he can come back to this emergency department at any time he wants to be reevaluated. Patient did not have any episodes of vomiting during ED stay. Departure - Departure Disposition: 01 Home, Self Care Clinical Impression: Upper GI bleed, Esophageal cancer Condition: Stable Instructions: ED Bleed UGI Stable Discharge Date/Time: 10/20/18 03:15
[2018-10-19 20:31] LABS: BASOPHILS % (AUTO) 0.4 %; EOSINOPHILS # (AUTO) 0.1 10^3/uL (0.0-0.7); EOSINOPHILS % (AUTO) 0.6 %; HGB - HEMOGLOBIN 8.2 g/dL (14.0-18.0); LYMPHOCYTES # (AUTO) 0.5 10^3/uL (1.5-3.5); MEAN CORPUSCULAR HEMOGLOBIN 32.1 pg (27.0-31.0); MEAN CORPUSCULAR HGB CONC 33.6 g/dL (32.0-36.0); MEAN CORPUSCULAR VOLUME 95.4 fL (80.0-94.0); MEAN PLATELET VOLUME 6.5 fL (7.4-11.4); MONOCYTES # (AUTO) 0.8 10^3/uL (0.0-1.0); MONOCYTES % (AUTO) 9.5 %; NEUTROPHILS # (AUTO) 7.4 10^3/uL (1.5-6.6); NEUTROPHILS % (AUTO) 83.5 %; PLT - PLATELET COUNT 112 10^3/uL (130-450); RED BLOOD COUNT 2.56 10^6/uL (4.70-6.10); WHITE BLOOD COUNT 8.9 x10^3/uL (4.8-10.8)
[2018-10-19] MEDS ORDERED: ONDANSETRON 4 MG/2 ML VIAL IVP STA (20:33)
[2018-10-19] MEDS ORDERED: HYDROmorphone 1 MG/ML CARPUJECT IVP STA (20:33)
[2018-10-19 20:38] LABS: INR 1.4 (0.8-1.2); PT - PROTHROMBIN TIME 15.6 secs (9.9-12.6)
[2018-10-19 20:43] LABS: BILIRUBIN,TOTAL 0.6 mg/dL (0.2-1.0); CALCIUM 8.5 mg/dL (8.5-10.3); CREATININE 0.9 mg/dL (0.6-1.2); TOTAL PROTEIN 6.1 g/dL (6.7-8.2)
[2018-10-20] MEDS ORDERED: HYDROmorphone 1 MG/ML CARPUJECT IVP STA (00:26)
[2018-10-20 00:37] LABS: BILIRUBIN,URINE NEGATIVE (NEGATIVE); GLUCOSE, URINE (UA) 100 mg/dL (NEGATIVE); KETONES,URINE (UA) NEGATIVE (NEGATIVE); LEUKOCYTE ESTERASE, URINE NEGATIVE (NEGATIVE); NITRITE,URINE NEGATIVE (NEGATIVE); OCCULT BLOOD,URINE NEGATIVE (NEGATIVE); PH,URINE 6.5 PH (5.0-7.5); PROTEIN,URINE NEGATIVE (NEGATIVE); UROBILINOGEN,URINE 0.2 (NORMAL) E.U./dL (NORMAL)
[2018-10-20 00:38] LABS: CLARITY,URINE CLEAR (CLEAR)
[2018-10-20 02:06] VITALS: BP 126/65
== END 2018-10-20 03:15 | disposition home or self-care (01) ==
LOC: ED 19:32
DX: K92.2 Gastrointestinal hemorrhage, unspecified (principal); C15.9 Malignant neoplasm of esophagus, unspecified; E11.9 Type 2 diabetes mellitus without complications; F17.200 Nicotine dependence, unspecified, uncomplicated
CPT/HCPCS: 36415; 80053; 81003; 83690; 85025; 85610; 86850; 86900; 86901; 86920; 96361; 96374; 96375; 99283; J1170; P9016; 81001; 87086

== ENCOUNTER 2018-10-20 15:43 | Outpatient (CLI) | payer OTHER | END 2018-10-20 15:44 | disposition critical access hospital (66) | LOC: EMS 15:43 | PROVIDERS: ATTEND Surgery | DX: K92.2 Gastrointestinal hemorrhage, unspecified (principal) | CPT/HCPCS: A0425; A0429 ==

== ENCOUNTER 2018-10-20 16:17 | Emergency (ER) | payer OTHER ==
[2018-10-20] MEDS ORDERED: PANTOPRAZOLE 40 MG VIAL IVP STA (16:33)
--- NOTE | 2018-10-20 16:35 | ED Physician Documentation ---
History of Present Illness - Stated complaint Stated Complaint: LOWER GI BLEED - History obtained from History obtained from: Patient, EMS - History of Present Illness Timing: Today (This is a 68-year-old gentleman with esophageal cancer, stent in place. He has been seen 2 times in the preceding 2 days with GI bleeding. He refused admission or transfer both times. Now he is incontinent of dark stool. He does not know what his goals of care are when I asked him. He says he wants to at home. I offered to transfer him to [facility] for GI care and he vacillates.) Review of Systems Ten Systems: 10 systems reviewed and negative Constitutional: denies: Fever, Chills Respiratory: reports: Reviewed and negative GI: reports: Abdominal Pain, Bloody / black stool. denies: Nausea, Vomiting : reports: Reviewed and negative PD PAST MEDICAL HISTORY - Past Medical History Respiratory: COPD Endocrine/Autoimmune: Type 2 diabetes GI: GERD, Ulcers, Diverticulitis, Other : Benign prostate hypertrophy, Retention - Past Surgical History Past Surgical History: Yes Ortho: Other - Present Medications Home Medications: Ambulatory Orders Medication Instructions Recorded Confirmed Capecitabine 650 mg PO TID 06/05/18 06/05/18 Hydrocodone/Acetaminophen 15 ml PO DAILY 06/05/18 06/05/18 [Hydrocodon-Acetamin 7.5-325/15] Lansoprazole [Prevacid] 30 mg PO DAILY 06/05/18 06/05/18 Loperamide HCl [Anti-Diarrheal] 2 mg PO DAILY PRN 06/05/18 06/05/18 Ondansetron HCl [Zofran] 8 mg PO DAILY 06/05/18 06/05/18 HYDROmorphone [Dilaudid] 2 mg PO Q4H PRN #20 tablet 06/28/18 Promethazine [Phenergan] 25 - 50 mg PO Q6H PRN #10 tab 07/24/18 - Allergies Allergies/Adverse Reactions: Allergies Allergy/AdvReac Type Severity Reaction Status Date / Time No Known Drug Allergies Allergy Verified 10/19/18 19:55 - Social History Does the pt smoke?: Yes Smoking Status: Current every day smoker Does the pt drink ETOH?: No Does the pt have substance abuse?: No - Family History Family history: reports: Non contributory - POLST Patient has POLST: No PD ED PE NORMAL - Vitals Vital signs reviewed: Yes - General General: Alert and oriented X 3, Other (He is slightly agitated, he is incontinent of stool and is very concerned by this.) - HEENT HEENT: PERRL, EOMI - Neck Neck: Supple, no meningeal sign, No bony TTP - Cardiac Cardiac: RRR, No murmur - Respiratory Respiratory: No respiratory distress, Clear bilaterally - Abdomen Abdomen: Normal bowel sounds, Soft, Non tender - Back Back: No CVA TTP, No spinal TTP - Derm Derm: Normal color, Warm and dry - Extremities Extremities: No edema, No calf tenderness / cord - Neuro Neuro: Alert and oriented X 3, Normal speech - Psych Psych: Normal mood, Normal affect Results - Vitals Vitals: Vital Signs - 24 hr 10/20/18 16:20 Temperature 36.6 C Heart Rate 126 H Respiratory 18 Rate Blood Pressure 100/58 L O2 Saturation 98 Oxygen O2 Source Room air - Labs Labs: Laboratory Tests 10/20/18 10/20/18 10/20/18 16:50 16:50 16:50 WBC 21.1 H RBC 2.13 L Hgb 6.7 L* Hct 20.8 L MCV 97.6 H MCH 31.4 H MCHC 32.2 RDW 18.9 H Plt Count 150 MPV 6.8 L Manual Slide Review Indicated PT 17.6 H INR 1.6 H Sodium 138 Potassium 4.4 Chloride 104 Carbon Dioxide 20 L Anion Gap 14.0 H BUN 40 H Creatinine 1.1 Estimated GFR (MDRD) 66 L Glucose 218 H Calcium 7.6 L Total Bilirubin 0.6 AST 27 ALT 13 Alkaline Phosphatase 50 Total Protein 5.0 L Albumin 2.5 L Globulin 2.5 Albumin/Globulin Ratio 1.0 Lipase 14 L PD MEDICAL DECISION MAKING - ED course ED course: 68-year-old gentleman with esophageal cancer and a stent in place presents with persistent GI bleeding. Note made that the last 2 days he had refused transfer to a GI capable facility, on the 's arrival today they have changed their goals of care and would like us to pursue transfer[facility]. He was graciously accepted at [facility] by Dr Weir, [place] were completed. His hemoglobin went from 8.8-8.2 in the setting of a transfusion from Friday to Friday, and yesterday from 8.2-6.7 the setting of another transfusion so clearly he is bleeding significantly. We will try to transfuse him 2 units prior to transport. I will also administer tranexamic acid. He has received Protonix. - Critical Care Time(min): 40 Time Includes: Direct patient care, Review records, Reassess patient, Document care, Coordinate care, Medical consult, Family consult for tx dec Data interpretation: Labs, Pulse ox Departure - Departure Disposition: 02 Transfer Acute Care Hosp Clinical Impression: History of esophageal cancer, Upper GI bleed Condition: Serious
[2018-10-20] MEDS ORDERED: ONDANSETRON 4 MG/2 ML VIAL IVP STA (16:55)
[2018-10-20] MEDS ORDERED: HYDROmorphone 1 MG/ML CARPUJECT IVP STA ×2 (16:55→19:48)
[2018-10-20 17:11] LABS: INR 1.6 (0.8-1.2); PT - PROTHROMBIN TIME 17.6 secs (9.9-12.6)
[2018-10-20 17:15] LABS: ALBUMIN 2.5 g/dL (3.2-5.5); BILIRUBIN,TOTAL 0.6 mg/dL (0.2-1.0); CALCIUM 7.6 mg/dL (8.5-10.3); CREATININE 1.1 mg/dL (0.6-1.2)
[2018-10-20 17:26] LABS: BASOPHILS % (AUTO) 0.4 %; EOSINOPHILS % (AUTO) 0.5 %; LYMPHOCYTES % (AUTO) 6.3 %; MEAN CORPUSCULAR HEMOGLOBIN 31.4 pg (27.0-31.0); MEAN CORPUSCULAR HGB CONC 32.2 g/dL (32.0-36.0); MEAN CORPUSCULAR VOLUME 97.6 fL (80.0-94.0); MEAN PLATELET VOLUME 6.8 fL (7.4-11.4); MONOCYTES % (AUTO) 10.1 %; NEUTROPHILS % (AUTO) 82.7 %; PLT - PLATELET COUNT 150 10^3/uL (130-450); RED BLOOD COUNT 2.13 10^6/uL (4.70-6.10); RED CELL DISTRIBUTION WIDTH 18.9 % (12.0-15.0); WHITE BLOOD COUNT 21.1 x10^3/uL (4.8-10.8)
[2018-10-20 17:33] LABS: HGB - HEMOGLOBIN 6.7 g/dL (14.0-18.0)
[2018-10-20 17:34] LABS: ABNORMAL LYMPHS % (MANUAL) 0 %
[2018-10-20] MEDS ORDERED: TRANEXAMIC ACID 1,000 MG in SODIUM CHLORIDE 0.9% 100ML 100 ML IV STA (17:34)
[2018-10-20 17:42] LABS: BAND NEUTROPHILS % (MANUAL) 3 %; LYMPHOCYTES # (MANUAL) 1.7 10^3/uL (1.5-3.5); LYMPHOCYTES % (MANUAL) 8 %; MONOCYTES # (MANUAL) 0.6 10^3/uL (0.0-1.0); NEUTROPHILS # (MANUAL) 18.8 10^3/uL (1.5-6.6); NEUTROPHILS % (MANUAL) 86 %
[2018-10-20 17:49] LABS: DIFFERENTIAL COMMENT MANUAL DIFFERENTIAL; PLATELET ESTIMATE, MANUAL NORMAL (130-450,000) (NORMAL); PLATELET MORPHOLOGY NORMAL APPEARANCE (NORMAL)
[2018-10-20] MEDS ORDERED: cefTRIAXone 1 GM in SODIUM CHLORIDE 0.9% MINIBAG 100 ML IV STA (18:05)
[2018-10-20 20:18] VITALS: BP 108/67
== END 2018-10-20 20:15 | disposition short-term general hospital (02) ==
LOC: EDUNIT# → ED 16:17
DX: K92.1 Melena (principal); C15.9 Malignant neoplasm of esophagus, unspecified; R79.9 Abnormal finding of blood chemistry, unspecified; E11.9 Type 2 diabetes mellitus without complications; F17.200 Nicotine dependence, unspecified, uncomplicated; K92.0 Hematemesis; K92.2 Gastrointestinal hemorrhage, unspecified
CPT/HCPCS: 36415; 36430; 80053; 81003; 83690; 85025; 85610; 85730; 86850; 86900; 86901; 86920; 96361; 96365; 96374; 96375; 96376; 99283; 99285; 99291; J1170; P9016

== ENCOUNTER 2018-10-20 20:18 | Outpatient (CLI) | payer OTHER | END 2018-10-20 20:19 | disposition short-term general hospital (02) | LOC: EMS 20:18 | PROVIDERS: ATTEND Surgery | DX: K92.2 Gastrointestinal hemorrhage, unspecified (principal) | CPT/HCPCS: A0425; A0426 ==

== ENCOUNTER 2018-10-24 02:06 | Emergency (ER) | payer OTHER ==
--- NOTE | 2018-10-24 02:45 | ED Physician Documentation ---
PD HPI ABD PAIN - Stated complaint Stated Complaint: VOMITING - Chief complaint Chief Complaint: Abd Pain - History obtained from History obtained from: Patient - History of Present Illness Timing - onset: Today Timing - details: Gradual onset Pain level now: 8 Quality: Pain Location: All over / everywhere Radiation: Other (everywhere, my entire body (per patient)) Improved by: Laying still Worsened by: Moving Associated symptoms: Vomiting (small ampunts, nonbloody and no longer has coffee grounds appearance). No: Fever, Nausea, Hematemesis, Diarrhea, Constipation, Melena, Hematochezia Recently seen: Emergency Dept, Admitted - Additional information Additional information: The patient was treated and released from this emergency department this past Friday and again on Friday and Friday. On the visit on Friday, patient was transferred to [facility] where he had an esophageal stent placed over the current state; the stent that was already in place had eroded into the cancer is esophageal mass, which was the source of the bleeding. He was discharged from [facility] yesterday, and followed up with his oncologist that same day, as well. be present at this time for diffuse body pain. He has abdominal pain, which he says is similar albeit worse than his ongoing abdominal pain. However, since earlier this afternoon, he has had pain diffusely, particularly in all four extremities that is worse with movement of extremities. he took his afternoon dose of his 15 mg extended release morphine at approx imately 4 PM. He has not yet started the increased dose of 30 mg BID that was prescribed when he was discharged from [facility]. Review of Systems Constitutional: reports: Reviewed and negative Cardiac: reports: Reviewed and negative Respiratory: reports: Reviewed and negative GI: reports: Abdominal Pain, Vomiting. denies: Diarrhea, Hematemesis, Bloody / black stool : denies: Dysuria, Frequency Musculoskeletal: reports: Extremity pain. denies: Extremity swelling PD PAST MEDICAL HISTORY - Past Medical History Respiratory: COPD Endocrine/Autoimmune: Type 2 diabetes GI: GERD, Ulcers, Diverticulitis, Other : Benign prostate hypertrophy, Retention Other Past Medical History: esophgeal cancer with stents - Past Surgical History Past Surgical History: Yes Ortho: Other - Present Medications Home Medications: Ambulatory Orders Medication Instructions Recorded Confirmed Capecitabine 650 mg PO TID 06/05/18 06/05/18 Hydrocodone/Acetaminophen 15 ml PO DAILY 06/05/18 06/05/18 [Hydrocodon-Acetamin 7.5-325/15] Lansoprazole [Prevacid] 30 mg PO DAILY 06/05/18 06/05/18 Loperamide HCl [Anti-Diarrheal] 2 mg PO DAILY PRN 06/05/18 06/05/18 Ondansetron HCl [Zofran] 8 mg PO DAILY 06/05/18 06/05/18 HYDROmorphone [Dilaudid] 2 mg PO Q4H PRN #20 tablet 06/28/18 Promethazine [Phenergan] 25 - 50 mg PO Q6H PRN #10 tab 07/24/18 - Allergies Allergies/Adverse Reactions: Allergies Allergy/AdvReac Type Severity Reaction Status Date / Time No Known Drug Allergies Allergy Verified 10/24/18 02:16 - Social History Does the pt smoke?: Yes Smoking Status: Current every day smoker Does the pt drink ETOH?: No Does the pt have substance abuse?: No - POLST Patient has POLST: No PD ED PE NORMAL - Vitals Vital signs reviewed: Yes - General General: Alert and oriented X 3, Well developed/nourished, Other (appears uncomfortable due to pain) - HEENT HEENT: Moist mucous membranes - Neck Neck: Supple, no meningeal sign - Cardiac Cardiac: No murmur - Respiratory Respiratory: No respiratory distress, Clear bilaterally - Abdomen Abdomen: Soft, Non distended, Other (mild/moderate tenderness across upper abdomen and periumbilicus) - Back Back: No CVA TTP, No spinal TTP - Derm Derm: Normal color, Warm and dry, No rash - Extremities Extremities: No tenderness to palpate, Normal ROM s pain, No edema - Neuro Neuro: Alert and oriented X 3 PD ED PE EXPANDED - Cardiac Cardiac: Tachy, Regular Rhythm Results - Vitals Vitals: Oxygen O2 Source Nasal cannula Oxygen Flow Rate 2 - Labs Labs: Laboratory Tests 10/24/18 10/24/18 03:20 03:20 WBC 7.6 RBC 2.52 L Hgb 8.1 L Hct 23.7 L MCV 94.2 H MCH 32.2 H MCHC 34.2 RDW 18.2 H Plt Count 140 MPV 6.8 L Neut # (Auto) 6.2 Lymph # (Auto) 0.4 L [place] # (Auto) 0.9 Eos # (Auto) 0.1 Baso # (Auto) 0.0 Absolute Nucleated RBC 0.01 Nucleated RBC % 0.1 Sodium 137 Potassium 3.3 L Chloride 101 Carbon Dioxide 27 Anion Gap 9.0 BUN 20 Creatinine 0.8 Estimated GFR (MDRD) 96 Glucose 226 H Calcium 8.2 L Total Bilirubin 0.8 AST 22 ALT 15 Alkaline Phosphatase 52 Total Protein 4.9 L Albumin 2.8 L Globulin 2.1 Albumin/Globulin Ratio 1.3 Lipase 16 L PD MEDICAL DECISION MAKING - ED course Complexity details: reviewed old records, reviewed results, re-evaluated patient, considered differential, d/w patient ED course: patient reported minimal relief with dilaudid. However, he is moving his extremities without any apparent discomfort after the dilaudid and does not appear to be in any discomfort. He is asleep on reevaluation, though easily awoken. Given a dose of 15 mg morphine extended release, and he reported good relief on reevaluation. He was able to ambulate to and from the bathroom without assistance or apparent difficulty or distress. Departure - Departure Disposition: 01 Home, Self Care Clinical Impression: Esophageal cancer, Muscle pain Condition: Good Instructions: ED Acute Pain [facility] Discharge Date/Time: 10/24/18 07:58
[2018-10-24] MEDS ORDERED: HYDROmorphone 2 MG/ML VIAL IVP STA (03:06)
[2018-10-24 03:52] LABS: BASOPHILS % (AUTO) 0.4 %; EOSINOPHILS # (AUTO) 0.1 10^3/uL (0.0-0.7); EOSINOPHILS % (AUTO) 0.8 %; HGB - HEMOGLOBIN 8.1 g/dL (14.0-18.0); LYMPHOCYTES # (AUTO) 0.4 10^3/uL (1.5-3.5); LYMPHOCYTES % (AUTO) 5.5 %; MEAN CORPUSCULAR HEMOGLOBIN 32.2 pg (27.0-31.0); MEAN CORPUSCULAR HGB CONC 34.2 g/dL (32.0-36.0); MEAN CORPUSCULAR VOLUME 94.2 fL (80.0-94.0); MEAN PLATELET VOLUME 6.8 fL (7.4-11.4); MONOCYTES # (AUTO) 0.9 10^3/uL (0.0-1.0); NEUTROPHILS # (AUTO) 6.2 10^3/uL (1.5-6.6); NEUTROPHILS % (AUTO) 81.3 %; PLT - PLATELET COUNT 140 10^3/uL (130-450); RED BLOOD COUNT 2.52 10^6/uL (4.70-6.10); RED CELL DISTRIBUTION WIDTH 18.2 % (12.0-15.0); WHITE BLOOD COUNT 7.6 x10^3/uL (4.8-10.8)
[2018-10-24 04:03] LABS: ALBUMIN 2.8 g/dL (3.2-5.5); ALBUMIN/GLOBULIN RATIO 1.3 (1.0-2.2); BILIRUBIN,TOTAL 0.8 mg/dL (0.2-1.0); CALCIUM 8.2 mg/dL (8.5-10.3); CREATININE 0.8 mg/dL (0.6-1.2); TOTAL PROTEIN 4.9 g/dL (6.7-8.2)
--- NOTE | 2018-10-24 04:10 | XRAY Report ---
Reason: abd. pain Procedure Date: 10/24/2018 Accession Number: [id number] / [id number] Procedure: XR - Abdomen Acute CPT Code: FULL RESULT: EXAM: ABDOMINAL SERIES AND PA CHEST EXAM DATE: 10/24/2018 04:04 AM. CLINICAL HISTORY: Abdominal pain. COMPARISON: CHEST 1 VIEW 06/05/2018 12:42 PM ABDOMEN/PELVIS W/ 06/05/2018 1:42 PM. TECHNIQUE: 2 views abdomen and 1 view chest. FINDINGS: CHEST: Lungs/Pleura: No focal opacities. No effusion or pneumothorax. Mediastinum: Within exam limitations, cardiomediastinal contour is normal. ABDOMEN: Bowel Gas Pattern: Within normal limits. No dilated loops or abnormal fluid levels. Free Air: None. Other: Stable right Port-A-Cath. Distal esophageal stent noted. IMPRESSION: No acute process seen in the chest or abdomen. RADIA
[2018-10-24] MEDS ORDERED: MORPHINE ER 15 MG TABLET PO STA (05:55)
[2018-10-24 06:42] VITALS: BP 126/72
== END 2018-10-24 07:58 | disposition home or self-care (01) ==
LOC: ED 02:06
DX: M79.10 Myalgia, unspecified site (principal); C15.9 Malignant neoplasm of esophagus, unspecified; J44.9 Chronic obstructive pulmonary disease, unspecified; E11.9 Type 2 diabetes mellitus without complications; F17.200 Nicotine dependence, unspecified, uncomplicated; Z96.89 Presence of other specified functional implants
CPT/HCPCS: 36415; 74022; 80053; 83690; 85025; 96374; 96375; 99284; A9270; J1170

== ENCOUNTER 2018-10-27 09:22 | Emergency (ER) | payer OTHER ==
[2018-10-27] MEDS ORDERED: SODIUM CHLORIDE 0.9% 1,000 ML IV ONE ×3 (09:33→12:53)
[2018-10-27 09:56] LABS: BASOPHILS % (AUTO) 0.2 %; EOSINOPHILS % (AUTO) 0.3 %; LYMPHOCYTES % (AUTO) 3.6 %; MEAN CORPUSCULAR HEMOGLOBIN 32.8 pg (27.0-31.0); MEAN CORPUSCULAR HGB CONC 33.1 g/dL (32.0-36.0); MEAN CORPUSCULAR VOLUME 99.3 fL (80.0-94.0); MEAN PLATELET VOLUME 6.6 fL (7.4-11.4); MONOCYTES % (AUTO) 10.5 %; NEUTROPHILS % (AUTO) 85.4 %; PLT - PLATELET COUNT 191 10^3/uL (130-450); RED BLOOD COUNT 1.72 10^6/uL (4.70-6.10); RED CELL DISTRIBUTION WIDTH 22.3 % (12.0-15.0); WHITE BLOOD COUNT 12.8 x10^3/uL (4.8-10.8)
[2018-10-27 09:59] LABS: HGB - HEMOGLOBIN 5.6 g/dL (14.0-18.0)
[2018-10-27 10:00] LABS: INR 1.4 (0.8-1.2); PT - PROTHROMBIN TIME 15.6 secs (9.9-12.6)
[2018-10-27 10:06] LABS: ALBUMIN 2.8 g/dL (3.2-5.5); ALBUMIN/GLOBULIN RATIO 1.2 (1.0-2.2); BILIRUBIN,TOTAL 0.2 mg/dL (0.2-1.0); CREATININE 0.8 mg/dL (0.6-1.2); TOTAL PROTEIN 5.2 g/dL (6.7-8.2)
--- NOTE | 2018-10-27 10:13 | ED Physician Documentation ---
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 and txed with chemo and rad at [facility] moved to [facility] 2016 cancer is back followed by cancer care in [place] Dr Lovett to ED several times last few weeks with hemoptysis has had transfusions also went to [facility] where (by his report) prior stent was found to have eroded into the cancer causing ulcer and a new stent was placed to day he is again vomiting large amt of dark blood and having upper abd lower chest pain he does not want any further cancer care - no surgery interventions etc - he understands he will from this is OK with a transfusion wants to be on hospice Review of Systems Throat: reports: Sore throat Cardiac: reports: Chest pain / pressure GI: reports: Abdominal Pain, Vomiting, Hematemesis Neurologic: reports: Generalized weakness Endocrine: denies: Easy bruising / bleeding Immunocompromised: denies: Immunocompromised PD PAST MEDICAL HISTORY - Past Medical History Respiratory: COPD Endocrine/Autoimmune: Type 2 diabetes GI: GERD, Ulcers, Diverticulitis, Other : Benign prostate hypertrophy, Retention Other Past Medical History: Esophageal cancer - Past Surgical History Past Surgical History: Yes General: EGD Ortho: Other - Present Medications Home Medications: Ambulatory Orders Medication Instructions Recorded Confirmed Capecitabine 650 mg PO TID 06/05/18 06/05/18 Hydrocodone/Acetaminophen 15 ml PO DAILY 06/05/18 06/05/18 [Hydrocodon-Acetamin 7.5-325/15] Lansoprazole [Prevacid] 30 mg PO DAILY 06/05/18 06/05/18 Loperamide HCl [Anti-Diarrheal] 2 mg PO DAILY PRN 06/05/18 06/05/18 Ondansetron HCl [Zofran] 8 mg PO DAILY 06/05/18 06/05/18 HYDROmorphone [Dilaudid] 2 mg PO Q4H PRN #20 tablet 06/28/18 Promethazine [Phenergan] 25 - 50 mg PO Q6H PRN #10 tab 07/24/18 - Allergies Allergies/Adverse Reactions: Allergies Allergy/AdvReac Type Severity Reaction Status Date / Time No Known Drug Allergies Allergy Verified 10/24/18 02:16 - Social History Does the pt smoke?: Yes Smoking Status: Current every day smoker Does the pt drink ETOH?: No Does the pt have substance abuse?: No - POLST Patient has POLST: No PD ED PE NORMAL - Vitals Vital signs reviewed: Yes - Cardiac Cardiac: RRR - Respiratory Respiratory: No respiratory distress, Clear bilaterally - Abdomen Abdomen: Other (mild upper abd TTP) - Derm Derm: Other (pale) - Neuro Neuro: Alert and oriented X 3 Results - Vitals Vitals: Vital Signs - 24 hr 10/27/18 10/27/18 10/27/18 09:28 09:51 10:06 Temperature 36.6 C Heart Rate 116 H 106 H 111 H Respiratory 20 16 20 Rate Blood Pressure 73/49 L 124/62 121/62 O2 Saturation 97 94 96 10/27/18 10/27/18 10/27/18 10:37 11:15 12:00 Temperature Heart Rate 110 H 111 H 114 H Respiratory 18 15 16 Rate Blood Pressure 110/50 L 106/55 L 105/53 L O2 Saturation 97 93 92 10/27/18 10/27/18 10/27/18 12:01 12:04 12:11 Temperature 37.3 C Heart Rate 114 H 117 H Respiratory 16 18 Rate Blood Pressure 107/59 L 111/58 L O2 Saturation 96 10/27/18 10/27/18 10/27/18 12:15 13:00 13:30 Temperature 37.1 C Heart Rate 115 H 104 H 104 H Respiratory 19 12 12 Rate Blood Pressure 104/59 L 66/36 L 66/36 L O2 Saturation 92 Oxygen O2 Source Nasal cannula - EKG (time done) 1246 Rate: Rate (enter#) (151) Other comments: Other comments (sinus tachy 151, ST elev inf and ST depr anterior, RBBB) - Labs Labs: Laboratory Tests 10/27/18 10/27/18 10/27/18 09:40 09:40 09:40 WBC 12.8 H RBC 1.72 L Hgb 5.6 L* Hct 17.0 L* MCV 99.3 H MCH 32.8 H MCHC 33.1 RDW 22.3 H Plt Count 191 MPV 6.6 L Neut # (Auto) Not Reportable Lymph # (Auto) Not Reportable [place] # (Auto) Not Reportable Eos # (Auto) Not Reportable Baso # (Auto) Not Reportable Absolute Nucleated RBC Not Reportable Total Counted 100 Band Neuts % (Manual) 5 Abnorm Lymph % (Manual) 0 Metamyelocytes % 3 H Nucleated RBC % Not Reportable Neutrophils # (Manual) 11.3 H Lymphocytes # (Manual) 0.4 L Monocytes # (Manual) 0.8 Eosinophils # (Manual) 0.0 Basophils # (Manual) 0.0 Differential Comment MANUAL DIFFERENTIAL Manual Slide Review Indicated Platelet Estimate NORMAL (130-450,000) Platelet Morphology NORMAL APPEARANCE RBC Morph Micro Appear 2+ POLYCHROMASIA PT 15.6 H INR 1.4 H APTT 25.3 Sodium 135 Potassium 3.8 Chloride 101 Carbon Dioxide 25 Anion Gap 9.0 BUN 38 H Creatinine 0.8 Estimated GFR (MDRD) 96 Glucose 186 H Calcium 8.0 L Total Bilirubin 0.2 AST 24 ALT 17 Alkaline Phosphatase 65 Troponin I Total Protein 5.2 L Albumin 2.8 L Globulin 2.4 Albumin/Globulin Ratio 1.2 Lipase 10 L Blood Type Antibody Screen Crossmatch IS Only 10/27/18 10/27/18 09:40 09:40 WBC RBC Hgb Hct MCV MCH MCHC RDW Plt Count MPV Neut # (Auto) Lymph # (Auto) [place] # (Auto) Eos # (Auto) Baso # (Auto) Absolute Nucleated RBC Total Counted Band Neuts % (Manual) Abnorm Lymph % (Manual) Metamyelocytes % Nucleated RBC % Neutrophils # (Manual) Lymphocytes # (Manual) Monocytes # (Manual) Eosinophils # (Manual) Basophils # (Manual) Differential Comment Manual Slide Review Platelet Estimate Platelet Morphology RBC Morph Micro Appear PT INR APTT Sodium Potassium Chloride Carbon Dioxide Anion Gap BUN Creatinine Estimated GFR (MDRD) Glucose Calcium Total Bilirubin AST ALT Alkaline Phosphatase Troponin I < 0.04 Total Protein Albumin Globulin Albumin/Globulin Ratio Lipase Blood Type O NEGATIVE Antibody Screen NEGATIVE Crossmatch IS Only See Detail - Rads (name of study) CXR Radiology: See rad report (no acute, no perf, esoph stent) PD MEDICAL DECISION MAKING - ED course ED course: H/H 04/09 pt agreeable to a transfusion - consented and blood ordered called Dr Cottrell from [facility] and he will come see pt in the ER did not get CXR trop EKG etc as pt would not want interventions based on results gave morphine for the pain Dr Cottrell to ED and met with pt and - he was placed on hospice - filled out POLST DNR comfort care plan was to transfuse and dc home where pt was to start hospice care and have durable equip delivered approx 30 min into his transfusion, pt abruptly changed - developed severe low chest upper abd pain, pale, diaphoretic, tachy, hypotensive, anxious I went to see the pt stopped blood in case transfusion rxn gave IVF for hypotension tachy, clear carol ann, abd TTP non distended no pulsatile mass found POLST and confirmed DNR comfort care and signed by pt gave morphine s relief then dilaudid with relief (takes morphine 15 mg dose at home so has tolerance) EKG shows inferior ischemia (so doubt a transfusion rxn) pt is clearly not a candidate for cath anticoag etc focused on comfort care called and immed came to bedside daughter also arrived pt conscious and knows they are here his pain is controlled 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
[2018-10-27] MEDS ORDERED: MORPHINE 2 MG/ML CARPUJECT IVP STA ×4 (10:15→12:53)
[2018-10-27] MEDS ORDERED: ONDANSETRON 4 MG/2 ML VIAL IVP STA (10:15)
[2018-10-27 10:58] LABS: ABNORMAL LYMPHS % (MANUAL) 0 %
[2018-10-27 11:05] LABS: BAND NEUTROPHILS % (MANUAL) 5 %; LYMPHOCYTES # (MANUAL) 0.4 10^3/uL (1.5-3.5); LYMPHOCYTES % (MANUAL) 3 %; METAMYELOCYTES % (MANUAL) 3 %; MONOCYTES # (MANUAL) 0.8 10^3/uL (0.0-1.0); NEUTROPHILS # (MANUAL) 11.3 10^3/uL (1.5-6.6); NEUTROPHILS % (MANUAL) 83 %
[2018-10-27 11:07] LABS: DIFFERENTIAL COMMENT MANUAL DIFFERENTIAL; PLATELET ESTIMATE, MANUAL NORMAL (130-450,000) (NORMAL); PLATELET MORPHOLOGY NORMAL APPEARANCE (NORMAL)
[2018-10-27] MEDS ORDERED: MORPHINE 2 MG/ML CARPUJECT ONE ×2 (12:45→12:53)
[2018-10-27] MEDS ORDERED: HYDROmorphone 1 MG/ML CARPUJECT ONE ×2 (13:01→13:12)
[2018-10-27] MEDS ORDERED: HYDROmorphone 1 MG/ML CARPUJECT IVP STA ×2 (13:08→13:09)
--- NOTE | 2018-10-27 13:37 | XRAY Report ---
Reason: lower esoph CA with stent aute pain concern for pe Procedure Date: 10/27/2018 Accession Number: [id number] / [id number] Procedure: XR - Chest 1 View X-Ray CPT Code: 38080 FULL RESULT: EXAM: CHEST RADIOGRAPHY EXAM DATE: 10/27/2018 01:17 PM. CLINICAL HISTORY: Lower esophagus CA with stent, acute pain, concern for PE. COMPARISON: ABDOMEN ACUTE 10/24/2018 3:35 AM. TECHNIQUE: 1 view. FINDINGS: Lungs/Pleura: No focal opacities evident. No pleural effusion. No pneumothorax. Mediastinum: The cardiomediastinal silhouette is stable with aortic arch calcifications. Other: The central venous port terminates with its tip in the right atrium. The esophageal stent is positioned at the level of the gastroesophageal junction. IMPRESSION: No airspace opacities are identified. RADIA
[2018-10-27] MEDS ORDERED: SODIUM CHLORIDE INHALATION 3 ML NEB ONE (15:05)
[2018-10-27 15:22] VITALS: BP 66/36
== END 2018-10-27 13:45 | disposition expired ==
LOC: ED 09:22
DX: K92.2 Gastrointestinal hemorrhage, unspecified (principal); C15.9 Malignant neoplasm of esophagus, unspecified; I95.9 Hypotension, unspecified; E11.9 Type 2 diabetes mellitus without complications; F17.200 Nicotine dependence, unspecified, uncomplicated; Z96.89 Presence of other specified functional implants
CPT/HCPCS: 36415; 36430; 71045; 80053; 83690; 84484; 85025; 85610; 85730; 86850; 86900; 86901; 86920; 93005; 96374; 96375; 96376; 99284; 99285; J1170; P9016